=== PATIENT | male | born 1940 | race Caucasian/White ===

== ENCOUNTER 2020-01-18 17:34 | Inpatient (IN) | payer OTHER ==
[~2020-01-18] VITALS: Ht 185.4 cm; Wt 57.7 kg
[~2020-01-18 17:34] MED LIST: PHENYLEPHRINE 10 MG/ML ONE
[2020-01-18] MEDS ORDERED: HALOPERIDOL 5 MG/ML IM ONE (18:00)
[2020-01-18] MEDS: POTASSIUM CHLORIDE 40 MEQ in D5%-LACTATED RINGERS 1,000 ML IV SCH ×2 (18:00→19:50)
[2020-01-18] MEDS ORDERED: SODIUM CHLORIDE FLUSH 10ML SYR IVF ONE (18:00)
[2020-01-18] MEDS ORDERED: PLEASE ENTER ALLERGIES MC SCH (18:00)
[2020-01-18] MEDS ORDERED: PLEASE ENTER HEIGHT AND WEIGHT MC SCH (18:00)
[2020-01-18] MEDS ORDERED: HALOPERIDOL 5 MG/ML ONE (18:02)
[2020-01-18] MEDS ORDERED: NS + 40MEQ KCL 1,000 ML IV ONE (18:03)
[2020-01-18 18:27] LABS: BASOPHILS % (AUTO) 1 % (0-1); EOSINOPHILS % (AUTO) 1 % (1-7); LYMPHOCYTES % (AUTO) 10 % (22-44); MEAN CORPUSCULAR HEMOGLOBIN 32.9 pg (27.5-34.5); MEAN CORPUSCULAR HGB CONC 33.6 g/dL (33.2-36.2); MEAN PLATELET VOLUME 7.8 fL (7.4-10.4); MONOCYTES % (AUTO) 11 % (2-9); NEUTROPHILS % (AUTO) 79 % (42-75); PLATELET COUNT 351 x10^3/uL (130-400); RED BLOOD COUNT 3.06 x10^6/uL (4.38-5.82); RED CELL DISTRIBUTION WIDTH 15.9 % (9.4-14.8)
[2020-01-18 18:29] LABS: INTERNATIONAL NORMALIZED RATIO 1.06 (0.93-1.1); PROTHROMBIN TIME 11.2 Seconds (9.6-11.5)
[2020-01-18 18:33] LABS: ALANINE AMINOTRANSFERASE 19 U/L (12-78); ALBUMIN 2.9 g/dL (3.4-5.0); ANION GAP 8 mmol/L (5-15); CHLORIDE 105 mmol/L (98-107); CREATININE 0.98 mg/dL (0.7-1.3)
--- NOTE | 2020-01-18 18:34 | NUR ---
PATIENT BIB CARE FLIGHT WITH CHIEF C/O SMALL BOWEL OBSTRUCTION. PER CARE FLIGHT RN PATIENT WAS D/C[facility]D FROM [facility] [place] 01/04 TO [facility]PATIENT [facility] AFTER HAVING UTI. PATIENT STARTED HAVING INCREASING ABDOMINAL PAIN, ALOC, AND INCREASED AGITATION. DIAGNOSED TODAY 01/18/2020 WITH SMALL BOWEL OBSTRUCTION. PATIENT WAS COVID + PRIOR TO 01/04 AND HAS SINCE TESTED NEGATIVE FOR COVID X2. PATIENT HAS 16 [place] NG TUBE IN RIGHT NARE, 22 GAUGE IV RAC AND 20 GAUGE IV LFA. PER CARE FLIGHT RN PATIENT'S VITALS STABLE EN ROUTE, RECIEVED 2.5 MG ATIVAN EN ROUTE.
--- NOTE | 2020-01-18 18:34 | NUR ---
SURGEON AT BEDSIDE FOR EVALUATION.
[2020-01-18 18:35] LABS: ALKALINE PHOSPHATASE 75 U/L (45-117); BILIRUBIN,TOTAL 0.8 mg/dL (0.2-1.0); TOTAL PROTEIN 6.5 g/dL (6.4-8.2)
[2020-01-18 18:36] LABS: MD NO
[2020-01-18] MEDS: HEPARIN 5,000 UNITS/ML, 1ML SQ SCH (19:19)
--- NOTE | 2020-01-18 19:20 | NUR ---
Report given to Abram FINNEGAN
[2020-01-18] MEDS ORDERED: HEPARIN 5,000 UNITS/ML, 1ML ONE (19:21)
[2020-01-18] MEDS ORDERED: ONDANSETRON ODT 4 MG PO PRN (19:30)
[2020-01-18] MEDS ORDERED: ACETAMINOPHEN 325 MG TABLET PO PRN ×2 (19:30→22:30)
[2020-01-18] MEDS ORDERED: LABETALOL 5MG/ML, 20ML IVPush PRN (19:30)
[2020-01-18] MEDS ORDERED: ONDANSETRON 2MG/ML, 2ML IVPush PRN ×2 (19:30→22:30)
[2020-01-18] MEDS ORDERED: PROMETHAZINE 25 MG/ML, 1ML IM PRN (19:30)
[2020-01-18] MEDS ORDERED: OXYcodone IR 5MG TABLET PO PRN (19:30)
[2020-01-18 19:54] LABS: FREE T4 (FREE THYROXINE) 1.59 ng/dL (0.76-1.46)
--- NOTE | 2020-01-18 19:54 | NUR ---
Pt pulled out IV. Placed new IV in R bicep. Secured IV and NG tube. Provider aware.
[2020-01-18] MEDS ORDERED: LORazepam 2 MG/ML, 1ML ONE (20:09)
[2020-01-18] MEDS ORDERED: LORazepam 2 MG/ML, 1ML IV ONE (20:30)
[2020-01-18] MEDS: PHENAZOPYRIDINE 200 MG TABLET PO SCH (21:00)
[2020-01-18] MEDS ORDERED: ATORVASTATIN 20 MG TABLET PO SCH (21:00)
[2020-01-18 21:07] VITALS: BP 112/66
[2020-01-18] MEDS ORDERED: FENTANYL PF 250 MCG/5ML ONE (21:50)
[2020-01-18] MEDS ORDERED: CEFOXITIN 1,000 MG ONE (22:13)
[2020-01-18] MEDS ORDERED: SUGAMMADEX 200 MG/2 ML IVPush ONE (22:16)
[2020-01-18] MEDS ORDERED: OXYcodone 5 MG/5 ML ORAL.SOL UDC PO PRN (22:30)
[2020-01-18] MEDS ORDERED: FENTANYL PF 100 MCG/2ML IV PRN (22:30)
[2020-01-18] MEDS ORDERED: LABETALOL 5MG/ML, 20ML IV PRN (22:30)
[2020-01-18] MEDS ORDERED: EPHEDRINE 50 MG/ML, 1ML IVPush PRN (22:30)
[2020-01-18] MEDS ORDERED: hydrALAzine 20 MG/ML, 1ML IV PRN (22:30)
[2020-01-18] MEDS ORDERED: HYDROmorphone 1 MG/ML, 1ML INJ IVPush PRN (22:30)
[2020-01-18] MEDS ORDERED: SUCCINYLCHOLINE 20 MG/ML, 10ML ONE (22:34)
[2020-01-18] MEDS ORDERED: ROCURONIUM 10MG/ML,5ML ONE (22:34)
[2020-01-18] MEDS ORDERED: DEXAMETHASONE 4 MG/ML, 1ML ONE (22:34)
[2020-01-18] MEDS ORDERED: PROPOFOL 10 MG/ML, 20ML ONE (22:34)
[2020-01-18] MEDS ORDERED: ONDANSETRON 2MG/ML, 2ML ONE (22:34)
[2020-01-19 00:08] VITALS: BP 113/78
[2020-01-19] MEDS: morphine SULFATE 10 MG/ML, 1ML IVPush PRN ×7 (01:00→21:00)
[2020-01-19] MEDS: POTASSIUM CHLORIDE 40 MEQ in D5%-LACTATED RINGERS 1,000 ML IV SCH ×3 (02:43→21:46)
[2020-01-19] MEDS: LINEZOLID PMX 600MG/300ML 300 ML IV SCH ×2 (02:43→14:30)
[2020-01-19 03:24] VITALS: BP 131/69
[2020-01-19 04:07] LABS: MEAN CORPUSCULAR HEMOGLOBIN 32.7 pg (27.5-34.5); MEAN CORPUSCULAR HGB CONC 32.8 g/dL (33.2-36.2); MEAN PLATELET VOLUME 7.9 fL (7.4-10.4); PLATELET COUNT 319 x10^3/uL (130-400); RED BLOOD COUNT 3.01 x10^6/uL (4.38-5.82); RED CELL DISTRIBUTION WIDTH 15.9 % (9.4-14.8)
[2020-01-19 04:17] LABS: CHLORIDE 111 mmol/L (98-107)
[2020-01-19 04:29] LABS: ALANINE AMINOTRANSFERASE 18 U/L (12-78); ALBUMIN 2.5 g/dL (3.4-5.0); ALKALINE PHOSPHATASE 64 U/L (45-117); ANION GAP 8 mmol/L (5-15); BILIRUBIN,TOTAL 0.4 mg/dL (0.2-1.0); CALCIUM 8.3 mg/dL (8.5-10.1); CHOL/HDL RATIO 2.2; CHOLESTEROL, TOTAL 96 mg/dL (140-239); CREATININE 1.24 mg/dL (0.7-1.3); HDL CHOL % 45 % (26-37); HDL CHOLESTEROL (DIRECT) 43 mg/dL (40-60); LDL CHOLESTEROL,CALCULATED 41 mg/dL (54-169); TOTAL PROTEIN 5.7 g/dL (6.4-8.2); TRIGLYCERIDES 61 mg/dL (50-200); VLDL CHOLESTEROL 12 mg/dL (0-25)
[2020-01-19 05:09] LABS: MD YES
[2020-01-19 05:11] LABS: <PLATELET ESTIMATE> ADEQUATE; <PLT MORPHOLOGY> NORMAL PLT MORPH; <RBC MORPHOLOGY> NORMAL; BANDS%(MANUAL) 22 % (0-7); LYMPH#(MANUAL) 0.12 x10^3/uL (1-3.4); LYMPHS% (MANUAL) 2 % (22-44); MONOS#(MANUAL) 0.47 x10^3/uL (0.3-2.7); MONOS% (MANUAL) 8 % (2-9); SEG#(MANUAL) 4.01 x10^3/uL (1.8-6.8); SEGS% (MANUAL) 68 % (42-75)
[2020-01-19] MEDS: HEPARIN 5,000 UNITS/ML, 1ML SQ SCH ×3 (05:38→21:00)
[2020-01-19] MEDS ORDERED: LEVOTHYROXINE 50 MCG TABLET PO SCH (06:00)
[2020-01-19 07:49] VITALS: BP 101/66
[2020-01-19] MEDS: PHENAZOPYRIDINE 200 MG TABLET PO SCH (08:45)
[2020-01-19] MEDS: PANTOPRAZOLE 40 MG IV IVPush SCH (08:47)
[2020-01-19] MEDS ORDERED: FLUOXETINE 10 MG CAP PO SCH (09:00)
[2020-01-19 11:18] LABS: MICROSCOPIC INDICATED
[2020-01-19 13:58] VITALS: BP 99/57
[2020-01-19 20:38] VITALS: BP 135/67
[2020-01-20] MEDS: morphine SULFATE 10 MG/ML, 1ML IVPush PRN ×3 (00:04→06:06)
[2020-01-20] MEDS: POTASSIUM CHLORIDE 40 MEQ in D5%-LACTATED RINGERS 1,000 ML IV SCH ×2 (01:44→06:05)
[2020-01-20] MEDS: LINEZOLID PMX 600MG/300ML 300 ML IV SCH (02:48)
[2020-01-20 04:06] VITALS: BP 119/60
[2020-01-20] MEDS: HEPARIN 5,000 UNITS/ML, 1ML SQ SCH (06:05)
[2020-01-20 07:04] LABS: MEAN CORPUSCULAR HEMOGLOBIN 32.8 pg (27.5-34.5); MEAN CORPUSCULAR HGB CONC 32.7 g/dL (33.2-36.2); MEAN PLATELET VOLUME 7.4 fL (7.4-10.4); PLATELET COUNT 279 x10^3/uL (130-400); RED BLOOD COUNT 2.66 x10^6/uL (4.38-5.82); RED CELL DISTRIBUTION WIDTH 15.9 % (9.4-14.8)
[2020-01-20 07:14] LABS: ALBUMIN 2.3 g/dL (3.4-5.0); ANION GAP 4 mmol/L (5-15); CALCIUM 8.6 mg/dL (8.5-10.1); CHLORIDE 117 mmol/L (98-107)
[2020-01-20 07:17] LABS: ALANINE AMINOTRANSFERASE 18 U/L (12-78); ALKALINE PHOSPHATASE 60 U/L (45-117); BILIRUBIN,TOTAL 0.3 mg/dL (0.2-1.0); TOTAL PROTEIN 5.5 g/dL (6.4-8.2)
[2020-01-20 08:00] VITALS: BP 120/58
[2020-01-20 08:30] LABS: BAND#(MANUAL) 0.67 x10^3/uL; BANDS%(MANUAL) 9 % (0-7); LYMPH#(MANUAL) 0.37 x10^3/uL (1-3.4); LYMPHS% (MANUAL) 5 % (22-44); MD YES; MONOS#(MANUAL) 0.44 x10^3/uL (0.3-2.7); MONOS% (MANUAL) 6 % (2-9); SEG#(MANUAL) 5.92 x10^3/uL (1.8-6.8); SEGS% (MANUAL) 80 % (42-75)
[2020-01-20 08:32] LABS: <PLATELET ESTIMATE> ADEQUATE; <PLT MORPHOLOGY> NORMAL PLT MORPH; ANISOCYTOSIS 1+
[2020-01-20] MEDS ORDERED: LORazepam 2 MG/ML, 1ML IVPush PRN (09:30)
[2020-01-20] MEDS: PANTOPRAZOLE 40 MG IV IVPush SCH (09:48)
[2020-01-20] MEDS ORDERED: ATROPINE OPHTH SOLN 1%, 5ML PO PRN (12:30)
[2020-01-20] MEDS ORDERED: ONDANSETRON 2MG/ML, 2ML IVPush PRN (12:30)
[2020-01-20 12:40] VITALS: BP 97/50
[2020-01-20] MEDS: LORazepam 2 MG/ML, 1ML IVPush PRN ×2 (14:21→17:08)
[2020-01-20] MEDS: MORPHINE SULFATE 4 MG/ML, 1ML IVPush PRN ×2 (16:11→20:39)
[2020-01-21] MEDS: MORPHINE SULFATE 4 MG/ML, 1ML IVPush PRN ×2 (00:19→05:00)
[2020-01-21] MEDS: LORazepam 2 MG/ML, 1ML IVPush PRN ×2 (06:25→22:44)
[2020-01-21] MEDS: MORPHINE 30MG/30ML PCA.SYR IV PRN ×2 (09:54→18:34)
[2020-01-21] MEDS: SCOPOLAMINE 1MG PATCH TD PRN (22:47)
[2020-01-22] MEDS: MORPHINE 30MG/30ML PCA.SYR IV PRN ×5 (00:19→21:41)
[2020-01-22] MEDS: LORazepam 2 MG/ML, 1ML IVPush PRN (05:24)
[2020-01-23] MEDS: MORPHINE 30MG/30ML PCA.SYR IV PRN ×5 (02:35→22:46)
[2020-01-24] MEDS: morphine SULFATE 100 MG in DEXTROSE 5% 90 ML IV PRN ×2 (04:18→20:28)
[2020-01-25] MEDS: SCOPOLAMINE 1MG PATCH TD PRN (11:04)
[2020-01-25] MEDS: morphine SULFATE 100 MG in DEXTROSE 5% 90 ML IV PRN (13:08)
== END 2020-01-25 17:00 | disposition expired | DRG 329 ==
LOC: ED 18:32 → EDIP 18:46 → 4NE 20:23 → 4NW 01-20 03:43
PROVIDERS: ADMIT Internal Medicine; ATTEND Internal Medicine
PROC: 0DJD0ZZ Inspection of Lower Intestinal Tract, Open Approach (ICD-10-PCS; 2020-01-18)
PROC: 0DT80ZZ Resection of Small Intestine, Open Approach (ICD-10-PCS; principal; 2020-01-18 22:45)
DX: K56.609 Unspecified intestinal obstruction, unspecified as to partial versus complete obstruction (principal); G93.41 Metabolic encephalopathy; C78.6 Secondary malignant neoplasm of retroperitoneum and peritoneum; N39.0 Urinary tract infection, site not specified; C78.7 Secondary malignant neoplasm of liver and intrahepatic bile duct; F20.5 Residual schizophrenia; R64 Cachexia; N17.9 Acute kidney failure, unspecified; Z68.1 Body mass index [BMI] 19.9 or less, adult; E03.9 Hypothyroidism, unspecified; E78.5 Hyperlipidemia, unspecified; E87.6 Hypokalemia; F03.90 Unspecified dementia, unspecified severity, without behavioral disturbance, psychotic disturbance, mood disturbance, and anxiety; F10.21 Alcohol dependence, in remission; F41.9 Anxiety disorder, unspecified; G62.9 Polyneuropathy, unspecified; I10 Essential (primary) hypertension; I73.9 Peripheral vascular disease, unspecified; M16.10 Unilateral primary osteoarthritis, unspecified hip; Z51.5 Encounter for palliative care; F10.20 Alcohol dependence, uncomplicated; F29 Unspecified psychosis not due to a substance or known physiological condition; F32.9 Major depressive disorder, single episode, unspecified; Z66 Do not resuscitate; Z79.02 Long term (current) use of antithrombotics/antiplatelets; Z85.51 Personal history of malignant neoplasm of bladder; Z86.718 Personal history of other venous thrombosis and embolism; Z87.440 Personal history of urinary (tract) infections; Z87.891 Personal history of nicotine dependence; Z88.8 Allergy status to other drugs, medicaments and biological substances; Z79.01 Long term (current) use of anticoagulants; Z79.899 Other long term (current) drug therapy
CPT/HCPCS: 36415; 83036; 96372; 96374; 99285; J7121; 80053; 80061; 81001; 83605; 83690; 83735; 84100; 84439; 84443; 85025; 85610; 87086; 88307; 88341; 88342; G0378; J1100; J1644; J2020; J2270; J2405; J2704; J3010; J3480; C9113; J0330; J0694; J1630; J2060; J2370